=== PATIENT | male | born 1970 | race African-American/Black ===

== ENCOUNTER 2019-08-27 17:55 | Emergency (ER) | payer BC ==
--- NOTE | 2019-08-27 20:08 | RAD REPORT ---
EXAM DESCRIPTION: US - Extremity Venous Uni Ltd - 08/27/2019 8:01 pm CLINICAL HISTORY: PAIN Leg swelling and edema. COMPARISON: No comparisons FINDINGS: Right lower extremity venous system was interrogated with Doppler technique. Normal flow, compressibility and augmentation was noted. There is no DVT present. IMPRESSION: No evidence of right lower extremity deep venous thrombosis.
--- NOTE | 2019-08-27 21:04 | EDPHYS ---
Physician Documentation [facility] Name: Danny Perez Jr Age: 49 yrs Sex: Male : 1970 Arrival Date: 08/27/2019 Time: 17:57 Bed 26 Private MD: Levy Fernandez B ED Physician Zarina Martinez HPI: 08/26 19:40 This 49 yrs old Black Male presents to ER via Ambulatory with complaints of Leg Pain. cp 19:40 The patient presents with pain. The complaints affect the right leg. Context: resulted cp from an unknown cause, the patient can fully bear weight, the patient is able to ambulate, Problem is a result from a previous injury: No. Onset: The symptoms/episode began/occurred "a few months". Associated signs and symptoms: Pertinent positives: calf tenderness, Pertinent negatives fever, numbness, swelling, warmth. 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 Patient denies injury to leg. Historical: - Allergies: 18:25 No Known Allergies; ca1 - PMHx: 18:25 Hypertension; Diabetes - NIDDM; High Cholesterol; ca1 - PSHx: 18:25 None; ca1 - Immunization history:: Adult Immunizations up to date. - Social history:: Smoking status: Patient denies any tobacco usage or history of. ROS: 19:45 Constitutional: Negative for body aches, chills, fever. cp 19:45 Cardiovascular: Negative for chest pain, edema, palpitations. cp 19:45 Respiratory: Negative for cough, shortness of breath, wheezing. 19:45 Abdomen/GI: Negative for abdominal pain. 19:45 MS/extremity: Positive for pain, tenderness, of the right leg, Negative for injury or acute deformity, decreased range of motion, paresthesias. 19:45 Skin: Negative for cellulitis, rash. 19:45 Neuro: Negative for numbness, weakness. 19:45 All other systems are negative. Exam: 19:55 Constitutional: The patient appears in no acute distress, alert, awake, cp non-diaphoretic, non-toxic, well developed, well nourished. 19:55 Head/Face: Normocephalic, atraumatic. cp 19:55 Cardiovascular: Rate: normal, Rhythm: regular. 19:55 Respiratory: the patient does not display signs of respiratory distress, Respirations: normal, Breath sounds: are clear throughout, no decreased breath sounds. 19:55 Back: pain, is absent, ROM is normal. 19:55 Musculoskeletal/extremity: Extremities: grossly normal except: noted in the posterior aspect right upper leg: pain, tenderness, There is no evidence of erythema, swelling, ROM: full active range of motion, in the right leg, Perfusion: the extremity is normally perfused throughout, Sensation intact. Joints: All joints appear normal with full range of motion. Weight bearing: able to fully bear weight. 19:55 Skin: cellulitis, is not appreciated, no rash present. Vital Signs: 18:25 BP 148 / 84; Pulse 95; Resp 16 S; Temp 97.4(TE); Pulse Ox 99% on R/A; Weight 111.13 kg ca1 (R); Height 5 ft. 5 in. (165.10 cm) (R); Pain 4/10; 21:09 BP 140 / 80; Pulse 90; Resp 18; Temp 97.4; Pulse Ox 100% on R/A; mg2 18:25 Body Mass Index 40.77 (111.13 kg, 165.10 cm) ca1 MDM: 19:33 Patient medically screened. cp 19:45 Differential diagnosis: cellulitis, DVT, muscle strain. cp 21:02 Data reviewed: vital signs, nurses notes, radiologic studies, ultrasound, and as a cp result, I will discharge patient. 21:02 Counseling: I had a detailed discussion with the patient and/or guardian regarding: the cp historical points, exam findings, and any diagnostic results supporting the discharge/admit diagnosis, radiology results, the need for outpatient follow up, a family practitioner, to return to the emergency department if symptoms worsen or persist or if there are any questions or concerns that arise at home. 08/26 18:29 Order name: Extremity Venous Uni Ltd ; Complete Time: 20:14 ca1 08/26 20:15 Interpretation: Report reviewed. cp Administered Medications: No medications were administered Disposition: 21:10 Chart complete. cp 08/27 20:20 Co-signature as Attending Physician, Zarina Martinez MD. ma2 Disposition: 08/27/19 21:03 Discharged to Home. Impression: Pain in right leg. - Condition is Stable. - Discharge Instructions: Musculoskeletal Pain. - Prescriptions for Naprosyn 500 mg Oral Tablet - take 1 tablet by ORAL route 2 times per day take with food; 30 tablet. - Medication Reconciliation Form, Thank You Letter, Antibiotic Education, Prescription Opioid Use form. - Follow up: Private Physician; When: 2 - 3 days; Reason: Worsening of condition. - Problem is new. - Symptoms have improved. Signatures: Dispatcher [employer] EDMS Donavan Fitzpatrick PA PA cp Zarina Martinez MD MD ks2 Kvng Trinh RN RN mg2 Jana Michaud RN RN ca1 Corrections: (The following items were deleted from the chart) 08/26 21:09 21:03 08/27/2019 21:03 Discharged to Home. Impression: Pain in right leg. Condition is mg2 Stable. Forms are Medication Reconciliation Form, Thank You Letter, Antibiotic Education, Prescription Opioid Use. Follow up: Private Physician; When: 2 - 3 days; Reason: Worsening of condition. Problem is new. Symptoms have improved. cp
--- NOTE | 2019-08-27 21:04 | ER ---
Nurse's Notes [facility] Name: Danny Perez Jr Age: 49 yrs Sex: Male : 1970 Arrival Date: 08/27/2019 Time: 17:57 Bed 26 Private MD: Levy Fernandez B Diagnosis: Pain in right leg Presentation: 08/26 18:21 Chief complaint: Patient states: Pains on my R leg, more on the calf and now on the ca1 thigh. I have been having this pain about few months ago now, and just got worst past few days. Pain is more when I walk. Denies swelling. Coronavirus screen: Proceed with normal triage. Patient denies a cough. Patient denies shortness of breath or difficulty breathing. Patient denies measured and/or subjective temperature greater than 100.4F prior to today's visit. Patient denies travel on a cruise ship or to a country the [facility] currently lists as an affected area. Patient denies contact with known and/or suspected case of COVID-19. Ebola Screen: Patient negative for fever greater than or equal to 101.5 degrees Fahrenheit, and additional compatible Ebola Virus Disease symptoms Patient denies exposure to infectious person. Patient denies travel to an Ebola-affected area in the 21 days before illness onset. No symptoms or risks identified at this time. Initial Sepsis Screen: Does the patient meet any 2 criteria? No. Patient's initial sepsis screen is negative. Does the patient have a suspected source of infection? No. Patient's initial sepsis screen is negative. Risk Assessment: Do you want to hurt yourself or someone else? Patient reports no desire to harm self or others. Onset of symptoms was August 27, 2019. 18:21 Method Of Arrival: Ambulatory ca1 18:21 Acuity: MIHAELA 4 ca1 Historical: - Allergies: 18:25 No Known Allergies; ca1 - PMHx: 18:25 Hypertension; Diabetes - NIDDM; High Cholesterol; ca1 - PSHx: 18:25 None; ca1 - Immunization history:: Adult Immunizations up to date. - Social history:: Smoking status: Patient denies any tobacco usage or history of. Screenin:09 Abuse screen: Denies threats or abuse. Denies injuries from another. Nutritional mg2 screening: No deficits noted. Tuberculosis screening: No symptoms or risk factors identified. Fall Risk None identified. Assessment: 21:08 General: Appears in no apparent distress. comfortable, Behavior is calm, cooperative. mg2 Pain: Complains of pain in right leg. Neuro: Level of Consciousness is awake, alert, obeys commands, Oriented to person, place, time, situation. Cardiovascular: Capillary refill < 3 seconds Patient's skin is warm and dry. Respiratory: Airway is patent Respiratory effort is even, unlabored, Respiratory pattern is regular, symmetrical. GI: No signs and/or symptoms were reported involving the gastrointestinal system. : No signs and/or symptoms were reported regarding the genitourinary system. EENT: No signs and/or symptoms were reported regarding the EENT system. Derm: Skin is intact, is healthy with good turgor, Skin is pink, warm \T\ dry. normal. Musculoskeletal: Circulation, motion, and sensation intact. Capillary refill < 3 seconds, Reports pain in right leg. Vital Signs: 18:25 BP 148 / 84; Pulse 95; Resp 16 S; Temp 97.4(TE); Pulse Ox 99% on R/A; Weight 111.13 kg ca1 (R); Height 5 ft. 5 in. (165.10 cm) (R); Pain 4/10; 21:09 BP 140 / 80; Pulse 90; Resp 18; Temp 97.4; Pulse Ox 100% on R/A; mg2 18:25 Body Mass Index 40.77 (111.13 kg, 165.10 cm) ca1 ED Course: 17:57 Patient arrived in ED. ag5 17:58 Levy Fernandez MD is Private Physician. ag5 18:24 Triage completed. ca1 18:25 Arm band placed on right wrist. ca1 19:22 Donavan Fitzpatrick PA is PHCP. cp 19:22 Zarina Martinez MD is Attending Physician. cp 20:01 Extremity Venous Uni Ltd US In Process Unspecified. EDMS 21:09 Patient has correct armband on for positive identification. mg2 21:09 Door closed. mg2 21:09 No provider procedures requiring assistance completed. Patient did not have IV access mg2 during this emergency room visit. Administered Medications: No medications were administered Outcome: 21:03 Discharge ordered by . cp 21:09 Discharged to home ambulatory, with family. mg2 21:09 Condition: stable 21:09 Discharge instructions given to patient, family, Instructed on discharge instructions, follow up and referral plans. medication usage, Demonstrated understanding of instructions, follow-up care, medications, Prescriptions given X 1. 21:09 Patient left the ED. mg2 Signatures: Dispatcher [employer] EDMS Donavan Fitzpatrick PA PA cp [place], Michele RN RN mg2 Jana Michaud RN RN ca1 Gabriel Diego [facility]
[2019-08-27 21:15] VITALS: TEMP 97.4
[2019-08-27 21:16] VITALS: BP 140/80; O2SAT 100
== END 2019-08-27 21:09 | disposition home or self-care (01) ==
LOC: ER 17:55
DX: M79.604 Pain in right leg (principal); I10 Essential (primary) hypertension
CPT/HCPCS: 93971; 99283